=== PATIENT | female | born 1975 | race Caucasian/White ===

== ENCOUNTER 2016-09-19 17:37 | Emergency (ER) | payer OTHER ==
--- NOTE | ~2016-09-19 | CR285 ---
[facility] A Service of [facility] RADIOLOGY TEXT RESULTS PATIENT: VENKAT LUNDBERG LOCATION: SED : 77 UNIT #: [id number] AGE: [address]: Cristóbal Clemente SEX: F ORDER DR: [id number] [address] [address] [id number] E MR#: [id number] Acc #: [id number] NAME: VENKAT LUNDBERG : 1975 SEX: F STUDY DATE/TIME: 09/19/2016 18:01 UNIT: SED ROOM: STUDY DESCRIPTION: CR Wrist W Navicular Min 3 Lt Attending Physician: Cristóbal Clemente P.A.-C. Referring Physician: Cristóbal Clemente P.A.-C. Ordering Physician: Cristóbal Clemente P.A.-C. Primary Care Physician: No Primary Care Physician MEDICAL IMAGING REPORT This report is preliminary unless electronic signature is present. EXAM Left wrist series dated 09/19/2016. COMPARISON None. HISTORY Left wrist and navicular pain. The patient had symptoms starting at 5:00 a.m. this morning. Went to [facility] first. Patient fell down while sleep walking. Feels broken to the patient. FINDINGS 4 views of the wrist were obtained. There is a thin linear vertically oriented subtle lucency noted in the appendiceal cortex of the distal radius at the radiocarpal articulating surface suspicious for a subtle nondisplaced fracture in the appropriate clinical setting. No associated dislocation is seen. Visualized carpal bones do not demonstrate any obvious abnormality. There is probably mild soft tissue swelling noted in the posterior aspect of the wrist. No radiopaque foreign body. Dictated by... Gamaliel Sellers M.D. THIS IS AN ELECTRONICALLY VERIFIED REPORT Gamaliel Sellers M.D. at 09/21/2016 3:03 PM CPR/ea TD: 09/19/2016 22:16 JOB #: [id number] [facility] A Service of [facility] RADIOLOGY TEXT RESULTS PATIENT: VENKAT LUNDBERG LOCATION: SED : 77 UNIT #: [id number] AGE: [address]: Cristóbal Clemente PAC SEX: F ORDER DR: MEDICAL IMAGING REPORT Page 1 of 1
[2016-09-19] MEDS ORDERED: PERCOCET 5/321 UDTAB PO (19:02)
== END 2016-09-19 19:02 | disposition home or self-care (01) ==
LOC: SED 17:37
DX: S52.502A Unspecified fracture of the lower end of left radius, initial encounter for closed fracture (principal); F17.210 Nicotine dependence, cigarettes, uncomplicated; W10.9XXA Fall (on) (from) unspecified stairs and steps, initial encounter; Y92.009 Unspecified place in unspecified non-institutional (private) residence as the place of occurrence of the external cause
CPT/HCPCS: 73110; 99283